=== PATIENT | male | born 1965 | race Caucasian/White ===

== ENCOUNTER 2019-02-22 17:23 | Emergency (ER) | payer BC ==
[~2019-02-22] VITALS: Ht 185.4 cm; Wt 83.0 kg
[2019-02-22 17:36] VITALS: BP 129/78
--- NOTE | 2019-02-22 17:42 | NUR ---
SEEN AND EXAMINED BY KARIE RUSSO NP.
[2019-02-22] MEDS ORDERED: LIDOCAINE 1%-EPI 1:100,000 20 ML VIAL ONE (17:45)
--- NOTE | 2019-02-22 17:48 | NUR ---
SUTURING SET UP AT BEDSIDE.
--- NOTE | 2019-02-22 17:57 | NUR ---
PARTS SPECIALIST AT BEDSIDE FOR XRAY.
[2019-02-22] MEDS ORDERED: LIDOCAINE 1%-EPI 1:100,000 50 ML VIAL IJ ONE (18:00)
--- NOTE | 2019-02-22 18:20 | NUR ---
SUTURING DONE BY KARIE RUSSO NP.
== END 2019-02-22 18:42 | disposition home or self-care (01) ==
LOC: ER 17:28
DX: S81.812A Laceration without foreign body, left lower leg, initial encounter (principal); W25.XXXA Contact with sharp glass, initial encounter; Y93.89 Activity, other specified; Y92.89 Other specified places as the place of occurrence of the external cause; Y99.8 Other external cause status
CPT/HCPCS: 12002; 73590; 99283; A6403; J3490 ×2